=== PATIENT | female | born 1975 | race Caucasian/White ===

== ENCOUNTER → 2018-07-05 | Day surgery (SDC) | payer OTHER ==
[~2018-07-05] VITALS: Ht 167.6 cm; Wt 64.4 kg
[~2018-07-05] MED LIST: LIDOCAINE 1% W/EPINEPHRINE 20 ML VIAL ONE; PROPANOLOL PO; PROZAC20 MG PO; SIMVASTATIN80 MG PO
--- OUTSIDE RECORDS SUMMARY | 2018-07-05 12:02 | XMS REPORT | Clinical Summary ---
Author Author [facility] Organization [facility] Address Unknown Phone Unavailable Care Team Providers Care Assembler Motor Vehicle Name Role Phone Greta Meza MD PCP Allergies No Known Allergies Medications End Date Status Medication Sig Dispensed Refills Start Date Active simvastatin (ZOCOR) 80 MG Take 80 mg by 1 tablet mouth every 7 evening. Active propranolol (INDERAL) 20 0 06/02/201 MG tablet 7 Active escitalopram (LEXAPRO) 10 0 201 MG tablet 7 Active aspirin (ECOTRIN) 81 MG Take 81 mg by 0 enteric coated tablet mouth daily. Active Problems No known active problems Family History Medical History Relation Name Comments Cancer Maternal Grandfather Thyroid cancer Maternal Grandmother Cancer Mother Relation Name Status Comments Father Maternal Grandfather Maternal Grandmother Alive Mother Alive Social History Date Tobacco Use Types Packs/Day Years Used Current Every Day Smoker Cigarettes Smokeless Tobacco: Never Used Comments: 5 cigarettes per day Alcohol Use Drinks/Week oz/Week Comments Defer Sex Assigned at Date Recorded Not on file Industry Job Start Date Occupation Not on file Not on file Not on file Travel End Travel History Travel Start No recent travel history available. Last Filed Vital Signs Not on file Plan of Treatment Health Maintenance Due Date Last Done Comments CERVICAL CANCER SCREENING 1998 INFLUENZA VACCINE 02/13/2018 04/14/2013, 03/16/2011, 03/26/2009 Results Not on fileafter 07/04/2017 Insurance Payer Benefit Subscriber ID Type Phone Address Plan / Group [facility] xxxxxxxxx HMO/PPO THCARE CHOICE/CHO ICE + Advance Directives Patient has advance care planning documents on file. For more information, michael koch contact: Chadwick Garnett [phone] [place] [address]
[2018-07-05 13:00] VITALS: BP 128/72
--- NOTE | 2018-07-05 13:00 | NUR ---
AAOX3, VSS. PREPROCEDURE TEACHING PROVIDED TO PT AND SPOUSE. LOOP RECORDER VISUALIZED. DENIED NEEDS AT THIS TIME. BED IN LOWEST POSITION, SIDE RAIL UP, CALL LIGHT WITHIN REACH.
[2018-07-05 14:00] VITALS: BP 126/76
--- NOTE | 2018-07-05 14:00 | NUR ---
AAOXLIZABETH Long. POST PROCEDURE INSTRUCTIONS PROVIDED TO PT AND SPOUSE. WRITTEN AND VERBAL DISCHARGE INSTRUCTIONS PROVIDED. DENIED PAIN OR NEEDS. DISCHARGED FROM UNIT IN STABLE CONDITION TO POV. Addendum: 07/05/18 at 1500 by SARAHY KUMARI RN SITE TO CHEST C/D/I NO BLEEDING THROUGH DRESSING NOTED.
--- NOTE | 2018-07-05 14:52 | Operative Report ---
DATE OF PROCEDURE: July 05, 2018 INDICATIONS: ILR end of life. PROCEDURES PERFORMED: Explant of implantable loop recorder. COMPLICATIONS: None. RECOMMENDATIONS: Continued medical therapy. The left anterior chest wall was anesthetized using subcutaneous lidocaine. The existing ILR was identified and extracted without complications. The subcutaneous tissue was approximated using 4-0 Vicryl, skin approximated using Dermabond. Patient discharged home same day. Job#: [id number]
== END | disposition home or self-care (01) ==
LOC: CATH LAB 12:00
PROVIDERS: ATTEND Internal Medicine Interventional Cardiology
DX: Z45.09 Encounter for adjustment and management of other cardiac device (principal)
CPT/HCPCS: 33284